=== PATIENT | female | born 1940 | race Caucasian/White ===

== ENCOUNTER 2016-05-31 11:49 | Emergency (ER) | payer MEDICARE ==
[~2016-05-31 11:49] MED LIST: CALCIUM CITRATE PO; CHOL200025 PO; CITI500C PO; DESO15CR25 TOP; MEMA28CA PO; MULT-1018 PO; NIAC500T21 PO; OMEG-10 PO; PSYL1PAC10 PO; PYRIDOXINE PO; TURM1POW MC; VALA100026 PO; [UNRECOGNIZED DRUG - OTHER] PO
[2016-05-31 12:05] VITALS: BP 138/85; PULSE 62; RESP 22; O2SAT 100
--- NOTE | 2016-05-31 12:08 | ED.REPORT ---
HPI-General Illness Date of Service May 31, 2016 ED Provider: The patient is a 75 year old female with history of Alzheimer's disease who was found wandering by police. When she was brought to the emergency department a bracelet was discovered on her with her 's contact information. Her states the patient has history of wandering. She has not had any recent injuries or traumas. They have no other concerns at this time. Nursing Notes Stated Complaint: CONFUSION Chief Complaint: Psychiatric Complaint Nursing Notes Reviewed: Yes Allergies: Coded Allergies: No Known Allergies (Unverified Allergy, Unknown, 02/22/15) Scheduled ([Calcium Citrate]) 840 MG PO DAILY ([Vit B6 30MG]) 30 MG PO DAILY ([Mg L-Threonate]) 144 MG PO DAILY Cholecalciferol (Vitamin D3) (Vitamin D3) 2,000 Unit Tablet 2,000 UNIT PO DAILY Citicoline Sodium (Cerenx) 500 Mg Capsule 1,000 MG PO DAILY Desonide (Desonide Cream) 15 Gm Cream..g. 1 APPLIC TOP PRN Memantine HCl (Namenda-XR) 28 Mg Cap.spr.24 28 MG PO DAILY Multivitamin (Multi Vitamin Daily) 1 Each Tablet 1 EACH PO DAILY Niacinamide (Niacin) 500 Mg Tablet 500 MG PO DAILY [place]-3/Dha/Epa/Fish Oil (Fish Oil 1,000 mg Softgel) 1 Each Capsule 1 EACH PO BID Psyllium Seed (with Sugar) (Metamucil Packet) 1 Each Packet 1 EACH PO DAILY Turmeric (Curcumin) 1 Gm Powder 1 GM MC DAILY Valacyclovir (Valacyclovir) 1,000 Mg Tablet 1,000 MG PO TID General Time Seen by MD: 12:06 Chief Complaint Altered mental status Hx Obtained From: Patient, Spouse, Police Arrived By: Police Sudden in Onset?: No Onset Occurred: 1 - 4 hours ago Symptom Duration: Since onset Severity: Current: No pain currently Severity: Maximum: No pain Recent Healthcare: No recent hospitalization Similar Sx Previous: Yes Past Medical History Past Medical History Alzheimer's Family History Noncontributory Smoking History Never Smoker Social History Other Social History: Good social support, , Local resident Ambulatory Status Independent Review of Systems +found wandering, she has no complaints Complete sys rev & neg: except as marked. Physical Exam Vital Signs Vital Signs Date Time Temp Pulse Resp B/P Pulse Ox O2 Delivery O2 Flow Rate FiO2 05/31/16 12:05 36.1 62 22 138/85 100 Room Air Initial VS: Reviewed Head / Eyes: Atraumatic, Normocephalic, PERRL ENT: Mucous membranes moist, Conjunctiva normal, No scleral icterus Neck: Supple, Non-tender, Full range of motion Respiratory: Breath sounds normal, Clear to auscultation, No respiratory distress Cardiovascular: Regular rate & rhythm, Heart sounds normal, Intact distal pulses Abdomen / GI: Soft, Non-tender, No guarding, No rebound, No distention Lymphatic: No lymphadenopathy Extremities: Vascular intact, Neuro intact, No swelling, No tenderness Skin: Warm, Dry, No cyanosis Neurologic: Nonfocal General/Constitutional: Awake, Alert, No acute distress, Cooperative Smiling, pleasantly demented. No signs of trauma. Re-Eval/Medical Decision Med Decision/Clinical Course The patient is a 75 year old female with history of Alzheimer's disease who was found wandering by police. When she was brought to the emergency department a bracelet was discovered on her with her 's contact information. Her states the patient has history of wandering. She has not had any recent injuries or traumas. They have no other concerns at this time. Patient is afebrile with stable vital signs. There is no evidence of trauma. arrived and confirmed that she is at her cognitive baseline. She commonly wanders and gets lost in the setting of her underlying dementia. This is a typical presentation for her. Physical examination is reassuring. I feel that she is appropriate for discharge to the care of her . Follow-up and return precautions were reviewed in detail and she was discharged in stable condition. Source of Hx: Old records, Family Time of Eval: 12:20 Re-Evaluation/Progress Note: Discussed plan for discharge. All questions were addressed. Counseled Regarding: Diagnosis, Need for follow-up, When/why to return to ED Discharge & Departure Primary Impression: Alzheimers disease Alzheimer's disease onset: unspecified onset Dementia behavioral disturbance : without behavioral disturbance Qualified Code: G30.9 - Alzheimer's disease , unspecified Additional Impression: Wandering Disposition: Home Discharge Condition All VS Reviewed: Yes Condition: Stable Additional Instructions: Thank you for seeking care at the emergency room. Our primary goal today in the ED was to evaluate Alyx for any life- threatening conditions. Her evaluation was reassuring. Please return to the ED immediately if for any new or concerning symptoms. Thank you for letting us partake in your care today. Referrals: Xena Madrid MD (PCP) Scribe Attestation Portions of this note were transcribed by Nusrat Gutierres. I, Dr. Ervin personally performed the history, physical exam and medical decision-making; I reviewed and confirmed the accuracy of the information in the transcribed note. Signed by: Kevin Cruz, 05/31/2016 at 1230. copies to: Xena Madrid MD, Beck O MD May 31, 2016 12:08 Nusrat Gutierres May 31, 2016 12:22
== END 2016-05-31 12:26 | disposition home or self-care (01) ==
LOC: SED 11:49
DX: G30.9 Alzheimer's disease, unspecified (principal); Z91.83 Wandering in diseases classified elsewhere